=== PATIENT | female | born 1995 ===

== ENCOUNTER 2018-03-16 18:35 | Emergency (ER) | payer OTHER ==
[2018-03-16 18:40] VITALS: RESP 18; TEMP 98.5
[2018-03-16] MEDS ORDERED: Tdap Vaccine 0.5 ml Vial (10-64 yrs) IM ONE ×2 (19:00→19:09)
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
[2018-03-16 19:08] VITALS: O2SAT 98
[2018-03-16] MEDS ORDERED: Lidocaine 1% 20 MG/2 ML PF AMP ONE (20:09)
[2018-03-16 20:40] VITALS: BP 126/74; PULSE 67
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
== END 2018-03-16 20:55 | disposition home or self-care (01) ==
LOC: H.ER 18:35
DX: S01.01XA Laceration without foreign body of scalp, initial encounter (principal); S00.03XA Contusion of scalp, initial encounter; Y08.89XA Assault by other specified means, initial encounter

== ENCOUNTER 2018-03-26 15:14 | Emergency (ER) | payer OTHER ==
[2018-03-26 15:29] VITALS: BP 131/78; PULSE 70; RESP 16; TEMP 98.1; O2SAT 100
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
== END 2018-03-26 16:15 | disposition home or self-care (01) ==
LOC: H.ER 15:14
DX: Z48.02 Encounter for removal of sutures (principal)